=== PATIENT | male | born 1935 | race Caucasian/White ===

== ENCOUNTER 2017-05-05 19:46 | Emergency (ER) | payer MEDICARE, OTHER ==
[~2017-05-05] VITALS: Ht 177.8 cm; Wt 92.6 kg
[~2017-05-05 19:46] MED LIST: BENI40TA33 PO; LANTUSP SQ; LISI2.5T3 PO; NEUR100C PO; NOVOLOGP2 SQ; ROSU20 PO
[2017-05-05 19:59] VITALS: BP 135/67; PULSE 86; RESP 20; TEMP 97.6; O2SAT 95
[2017-05-05] MEDS ORDERED: LANTUS2P SQ (20:32)
[2017-05-05] MEDS ORDERED: GABA100C4 PO (20:32)
[2017-05-05] MEDS ORDERED: NOVOLOGP2 SQ (20:32)
[2017-05-05] MEDS ORDERED: LISI10TA3 PO (20:32)
[2017-05-05] MEDS ORDERED: ROSU40 PO (20:32)
--- NOTE | 2017-05-05 20:58 | PD ---
HPI Chief Complaint: Skin Problem Time Seen by Provider: 20:39 Travel History International Travel<30 days: No Contact w/Intl Traveler<30days: No Traveled to known affect area: No History of Present Illness HPI 82-year-old male presents to the emergency room for evaluation of itchy and burning rash to bilateral posterior thighs that started about 1.5 weeks ago. Patient states it started off as a small pimple on his left leg and has significantly spread since then. He denies any other involvement. He denies fever, chills, nausea, vomiting. He states it only nguyen when he touches it. He has applied drawing salve without any change in symptoms. History of diabetes, hypertension, and hypercholesterolemia. PFSH Past Medical History Arthritis: No Asthma: No Blood Disorders: No Heart Rhythm Problems: No Cancer: Yes (L.LUNG ) Cardiovascular Problems: Yes High Cholesterol: Yes Chest Pain: No Congestive Heart Failure: No COPD: No Cerebrovascular Accident: No Diabetes: Yes (INSULIN DEPENDANT) Patient Takes Glucophage: No Diminished Hearing: No Endocrine: Yes GERD: No Genitourinary: No Headaches: Yes (FRONTAL HEADACHES, " LONG I CAN REMEMBER") Hiatal Hernia: No Hypertension: Yes Immune Disorder: No Kidney Stones: No Musculoskeletal: Yes Neurologic: No Psychiatric: No Reproductive: No Respiratory: Yes Immunizations Current: Yes Migraines: No Renal Failure: No Seizures: No Sleep Apnea: No Ulcer: No Tetanus Vaccination: Unknown Past Surgical History Abdominal Surgery: No Cardiac Surgery: No Ear Surgery: No Endocrine Surgery: No Eye Surgery: No Genitourinary Surgery: No Oral Surgery: No Thoracic Surgery: Yes (1984--"L.LUNG REMOVED") Social History Alcohol Use: No Tobacco Use: No (quit 1980) Substance Use: No Allergies-Medications (Allergen,Severity, Reaction): Coded Allergies: diatrizoate meglumine (Unverified Allergy, Severe, HIVES, 05/05/17) gadobenic acid (Unverified Allergy, Severe, HIVES, 05/05/17) gadodiamide (Unverified Allergy, Severe, HIVES, 05/05/17) gadoteridol (Unverified Allergy, Severe, HIVES, 05/05/17) iodixanol (Unverified Allergy, Severe, HIVES, 05/05/17) iohexol (Unverified Allergy, Severe, HIVES, 05/05/17) Reported Meds & Prescriptions Reported Meds & Active Scripts Active Acyclovir 800 Mg Tab 800 Mg PO 5 TIMES A DAY 7 Days Tylenol-Codeine #3 (Acetaminophen-Codeine) 300-30 mg Tab 1-2 Tab PO Q6H PRN Ala-Sander Topical (Hydrocortisone (Topical)) 2.5% Cream 1 Applic TOPICAL DIRECTED Reported Crestor (Rosuvastatin Calcium) 40 Mg Tab 40 Mg PO DAILY Lisinopril 10 Mg Tab 10 Mg PO DAILY Lantus Inj (Insulin Glargine) 1,000 Unit/10 Ml Vial 35 Units SQ HS Novolog Inj (Insulin Aspart) 1,000 Unit/10 Ml Vial 0 SQ DIRECTED Sliding Scale as directed. Gabapentin 100 Mg Cap 100 Mg PO HS Review of Systems Except as stated in HPI: all other systems reviewed are Neg Physical Exam Narrative GENERAL: Well-nourished, well-developed male in no acute distress. Afebrile. Ambulatory. SKIN: Focused skin assessment warm/dry. Multiple circular 1-2 cm erythematous, maculopapular lesions with vesicular centers to bilateral posterior thighs. No induration, drainage, or fluctuance. Sensitive to palpation. HEAD: Normocephalic. EYES: No scleral icterus. No injection or drainage. NECK: Supple, trachea midline. No JVD or lymphadenopathy. CARDIOVASCULAR: Regular rate and rhythm without murmurs, gallops, or rubs. RESPIRATORY: Breath sounds equal bilaterally. No accessory muscle use. PSYCHIATRIC: No delusional thought processes. No hallucinations. Data Data Last Documented VS Vital Signs Date Time Temp Pulse Resp B/P (MAP) Pulse Ox O2 Delivery O2 Flow Rate FiO2 05/05/17 19:59 97.6 86 20 135/67 (89) 95 MDM Medical Decision Making Medical Screen Exam Complete: Yes Emergency Medical Condition: Yes Medical Record Reviewed: Yes Differential Diagnosis Urticaria, insect bite, shingles Narrative Course 82-year-old male presents to the emergency room for evaluation of painful and itchy rash to bilateral posterior thighs that started about 1.5 weeks ago. States it started off as a small pimple and has Crohn significantly. States it is tender to palpation. Denies systemic signs of infection. He is afebrile and well-appearing in the emergency room. Resting comfortably. Physical exam reveals multiple circular 1-2 cm erythematous, maculopapular lesions with vesicular centers to bilateral posterior thighs. No induration, drainage, or fluctuance. Sensitive to palpation. I spoke to my attending physician who agrees rash is most consistent with shingles. Patient will be treated empirically with acyclovir and given prescription for Tylenol No. 3. Told to follow up with his primary care physician or return for worsening symptoms. He understands and and agrees to signs. Diagnosis Primary Impression: Shingles Qualified Codes: B02.9 - Zoster without complications Referrals: Primary Care Physician Additional Instructions: Rest and drink plenty of fluids. Acyclovir as directed, until gone. Tylenol 3 as directed, as needed for pain. Do not drink alcohol or drive while taking this medication. Follow-up with a primary care physician. Return to the emergency room for worsening symptoms. Med/Other Pt SpecificInfo: Prescription(s) given Scripts Acyclovir (Acyclovir) 800 Mg Tab 800 MG PO 5 TIMES A DAY for Mgmt Viral Infection for 7 Days, TAB 0 Refills Prov: Rishi Beltran MD 05/05/17 Acetaminophen-Codeine (Tylenol-Codeine #3) 300-30 mg Tab 1-2 TAB PO Q6H Y for PAIN, #12 TAB 0 Refills Prov: Rishi Beltran MD 05/05/17 Disposition: 01 DISCHARGE HOME Condition: Stable Radha Sinha May 05, 2017 20:58
[2017-05-05] MEDS ORDERED: HYDR-4204 TOPICAL (21:02)
[2017-05-05] MEDS ORDERED: ACYC800T PO (21:12)
[2017-05-05] MEDS ORDERED: TYLETAB34 PO (21:12)
== END 2017-05-05 21:30 | disposition home or self-care (01) ==
LOC: PHEFT 19:46
DX: B02.9 Zoster without complications (principal); I10 Essential (primary) hypertension; E78.00 Pure hypercholesterolemia, unspecified; E11.9 Type 2 diabetes mellitus without complications; Z87.891 Personal history of nicotine dependence
CPT/HCPCS: 99284